=== PATIENT | male | born 1980 | race Two or more races ===

== ENCOUNTER 2020-05-10 09:37 | Outpatient (CLI) | payer MEDICAID ==
[~2020-05-10 09:37] MED LIST: ARTIFICIAL TEAR15 ML BOTH EYES; FISH OIL CAP1000 MG ORAL; FLUTICASONE PRO16 G1 NASAL; HYDRALAZINE HCL10 MG ORAL; HYDROCHLOROTH12.5 MG ORAL; IBUPROFEN600 MG ORAL; LACTASE FAS9000 UNIT PO; MULTIVITAMINS1 EAC2 ORAL; PROAIR HFA8.5 GM INH; PROPRANOLOL HCL10 MG ORAL; TRINATAL RX 11 EACH PO; TRUVADA1 TAB ORAL; WELLBUTRIN XL150 MG ORAL
--- NOTE | 2020-05-10 10:10 | General Progress Note ---
Subjective ROS Limited/Unobtainable: Yes Allergies: Coded Allergies: No Known Allergies (Unverified , 07/01/19) Objective General Appearance: alert EENT: normal ENT inspection Neck: supple Cardiovascular: normal rate Respiratory/Chest: decreased breath sounds Abdomen: normal bowel sounds, non tender, soft Extremities: non-tender Assessment/Plan Assessment/Plan: 1. Lactose intolerance. 2. Anxiety. 3. Hypertension. 4. Depression. 5. Bronchitis. trial of Xifaxan align ppi Tony Restrepo MD May 10, 2020 10:10
== END 2020-05-10 11:37 | disposition home or self-care (01) ==
LOC: PAN 09:37
DX: E73.9 Lactose intolerance, unspecified (principal); F41.9 Anxiety disorder, unspecified; I10 Essential (primary) hypertension; F32.9 Major depressive disorder, single episode, unspecified; J20.9 Acute bronchitis, unspecified
CPT/HCPCS: 99212